=== PATIENT | female | born 1965 | race Hispanic/Latino ===

== ENCOUNTER 2017-10-21 09:10 | Outpatient (CLI) | payer BC ==
--- NOTE | 2017-10-21 11:10 | XRay Report ---
XRAY CHEST TWO VIEWS: 10/21/17 09:10:00 CLINICAL: Cough. COMPARISON: None FINDINGS: Normal heart and pulmonary vasculature. The lungs are normally expanded and clear.The bones and soft tissues are unremarkable. IMPRESSION: Normal chest.
== END 2017-10-21 09:11 | disposition home or self-care (01) ==
LOC: SPVIMAG 09:10
PROVIDERS: ATTEND Family Medicine Adult Medicine
DX: R05 Cough (principal)
CPT/HCPCS: 71020

== ENCOUNTER 2017-11-10 09:08 | Outpatient (CLI) | payer BC ==
--- NOTE | 2017-11-10 14:50 | Mammography Report ---
BILATERAL DIGITAL SCREENING MAMMOGRAM with CAD : 11/10/17 09:08:00 CLINICAL: Routine screening. COMPARISON:None. She doesn't remember where she previously had a mammogram. FINDINGS: The breasts are heterogeneously dense, which may obscure small masses.A group of right benign calcifications. No mass, architectural distortion or suspicious calcifications. IMPRESSION: No mammographic evidence of malignancy. BI-RADS CATEGORY: 2 -- Benign RECOMMENDATION: Routine mammographic screening in one year. COMMENT: Patient follow-up letters are generated by our [employer] application.
== END 2017-11-10 09:09 | disposition home or self-care (01) ==
LOC: SPVWC 09:08
PROVIDERS: ATTEND Family Medicine Adult Medicine
DX: Z12.31 Encounter for screening mammogram for malignant neoplasm of breast (principal)
CPT/HCPCS: 77067; G0202

== ENCOUNTER 2018-05-04 08:16 | Outpatient (CLI) | payer BC ==
--- NOTE | 2018-05-04 14:25 | Ultrasound Report ---
THYROID ULTRASOUND:05/04/18 08:16:00 CLINICAL: Thyroid fullness on physical exam. FINDINGS: High-resolution ultrasound demonstrated a normal size thyroid with normal contours and echogenicity. The right lobe measures 4.8 x 1.7 x 1.7cm. The left lobe measures 4.1 x 1.6 x 1.4. The isthmus measures 0.5. No thyroid nodule or cyst. IMPRESSION: Normal thyroid.
== END 2018-05-04 08:17 | disposition home or self-care (01) ==
LOC: SPVWC 08:16
PROVIDERS: ATTEND Family Medicine Adult Medicine
DX: E07.89 Other specified disorders of thyroid (principal)
CPT/HCPCS: 76536